=== PATIENT | male | born 1990 | race Caucasian/White ===

== ENCOUNTER 2022-09-03 18:35 | Emergency (ER) | payer OTHER, SELFPAY ==
--- NOTE | 2022-09-03 18:36 | ED.URI ---
HPI - URI/Sore Throat General Chief Complaint: Upper Respiratory Infection Stated Complaint: COUGH/RUNNY NOSE/CONGESTION Time Seen by Provider: 09/03/22 18:36 Source: patient Mode of arrival: ambulatory Limitations: no limitations History of Present Illness HPI Narrative: René is a 31-year-old male patient presenting to the clinic today with complaints of a cough, runny nose, and nasal congestion x3 days. He reports he has had the cough for approximately 1 week. Bringing up some clear yellowish phlegm. No known fever or chills. Denies any shortness of breath or chest pain. MD elicited complaint: cough, rhinorrhea and nasal congestion Related Data Allergies Allergy/AdvReac Type Severity Reaction Status Date / Time No Known Allergies Allergy Unverified 09/03/22 18:47 Review of Systems Review of Systems: Pertinent positives per HPI. Patient denies any fever, chills, rash, headache, visual changes, dizziness, shortness of breath, chest pain, palpitations, nausea, vomiting, diarrhea, constipation, abdominal pain, or any urinary issues. PMFSH Comments At the time of my signature, I reviewed and agree with the nursing past medical, surgical, social, and family history. There is no relevant family history pertinent to the patient complaint. Exam Narrative: General: Well-developed, obese, in no apparent distress Head: Normocephalic, atraumatic Eyes: Pupils equally round and reactive to light bilaterally, EOM intact, sclera and conjunctive clear, no discharge, lids normal Ears: TMs intact and clear, ear canals clear, no drainage, grossly hearing normal. Nose: Nares patent, clear nasal discharge, no inflammation, no sinus tenderness. Mouth: Oral pharynx without lesions or masses, good dentition, MMM. Postnasal drip Neck: Supple, trachea midline, no enlargement of anterior or posterior cervical nodes, no thyroid masses or goiter palpable. Cardio: Regular rate and rhythm, s1 and s2 normal, no murmur appreciated. Resp: Clear to auscultation bilaterally, no rhonchi, rales, wheezing or rubs Course Course Emergency Course: Portions of this record may have been created with voice recognition software. Level of Care: Express Care Visit Vital Signs Vital signs: Vital signs reviewed MDM - URI/Sore Throat MDM Narrative Medical decision making narrative: At the time of visit patient is resting on the exam table. I suspect patient has URI. Will send in prescription for prednisone and Tessalon Perles. Supportive measures were discussed with the patient he voiced understanding discharge instructions and agrees to treatment plan. Differential Diagnosis Differential diagnosis: Likely upper respiratory infection, otitis media, sinusitis, viral infection, bronchitis, influenza, pharyngitis and other (COVID) Discharge Plan Discharge Clinical Impression: Acute upper respiratory infection Patient Disposition: Home, Self-Care Condition: Stable Instructions: Antibiotic Form, Upper Respiratory Infection (ED) Additional Instructions: Take prescription medications only as prescribed-prednisone and Tessalon Perles Increase fluids and stay well hydrated Tylenol/motrin for pain/fever Flonase and OTC antihistamines as directed Vicks vapor rub to open sinuses Sinus rinses for congestion Cepacol spray, cough drops, throat lozenges, warm tea with honey/lemon, gargle salt water to soothe throat BRAT diet for diarrhea Clear liquids x 24 hours then advance as tolerated for nausea/vomiting Go to the ED if you develop a worsening in your condition- high fever not controlled by Tylenol or Motrin, dehydration, weakness, lethargy, shortness of breath, or chest pain. Follow up with your PCP in 3-5 days if symptoms persist. Prescriptions: New benzonatate 200 mg capsule 200 mg PO TID 7 Days Qty: 21 0RF prednisone 20 mg tablet 40 mg PO DAILY 5 Days Qty: 10 0RF Follow-up/Referrals: UNKNOWN,DOC
[2022-09-03 18:46] VITALS: BP 152/94; PULSE 108; RESP 16; TEMP 36.9; O2SAT 100
[2022-09-03 18:47] VITALS: BP 152/94; PULSE 108; RESP 16; TEMP 36.9; O2SAT 100
== END 2022-09-03 18:54 | disposition home or self-care (01) ==
PROVIDERS: Emergency Provider Nurse Practitioner Family
DX: J06.9 Acute upper respiratory infection, unspecified (principal)
CPT/HCPCS: 99203; G0463

== ENCOUNTER 2025-01-13 17:59 | Emergency (ER) | payer OTHER, SELFPAY ==
--- NOTE | ~2025-01-13 | XR_ITS ---
EXAMINATION: XR chest 2V 01/13/2025 18:36 INDICATION: Chest pain PROCEDURE: 2 view chest COMPARISON: No prior studies for comparison. FINDINGS: The lungs are clear. The cardiomediastinal silhouette is within normal limits. There are no pleural effusions. There is no pneumothorax suspected. IMPRESSION: 1: NO ACUTE CARDIOPULMONARY DISEASE. Reviewed, dictated and finalized at location O. AL WORK COORDINATOR
[2025-01-13 18:10] VITALS: BP 151/101; PULSE 117; RESP 16; TEMP 37.1; O2SAT 100
--- NOTE | 2025-01-13 18:11 | ED.ANXIETY ---
HPI - Anxiety General Chief Complaint: Anxiety <Ivet Vera PA-C - Last Filed: 01/15/25 14:35> Stated Complaint: anxiety <Ivet Vera PA-C - Last Filed: 01/15/25 14:35> Time Seen by Provider: 01/13/25 18:11 <Ivet Vera PA-C - Last Filed: 01/15/25 14:35> Focused HPI: This is a 34 year old male that presents to the ER for anxiety. Feels like he is having a panic attack. Does not take medication for this currently. Reports he had some chest pain that started this. GENERAL: Mildly anxious, well-nourished HEAD: Normocephalic, atraumatic. CHEST: Clear to auscultation. ?No respiratory distress. HEART: Regular rate and rhythm.? NEURO: ?Alert and oriented x3. Patient screened in triage and initial orders placed.? ?Additional care and disposition to be based upon?diagnostic testing and treatment. <Ivet Vera PA-C - Last Filed: 01/15/25 14:35> History of Present Illness HPI narrative: Agree with HPI <Justin Gregorio DO - Last Filed: 01/13/25 23:14> Related Data Allergies/Adverse Reactions: Allergies Allergy/AdvReac Type Severity Reaction Status Date / Time No Known Allergies Allergy Verified 01/13/25 18:16 <Ivet Vera PA-C - Last Filed: 01/15/25 14:35> Review of Systems Review of Systems: All systems reviewed & are unremarkable except as noted in HPI and below <Ivet Vera PA-C - Last Filed: 01/15/25 14:35> PMFSH Social History Social History: Social History Substance use type: does not use <RENATO Diehl Last Filed: 01/15/25 14:35> Course Vital Signs Vital signs: Vital Signs Temperature 98.7 F 01/13/25 18:10 Pulse Rate 117 H 01/13/25 18:10 Respiratory Rate 16 01/13/25 18:10 Blood Pressure 151/101 H 01/13/25 18:10 Pulse Oximetry 100 01/13/25 18:10 Oxygen Delivery Room Air 01/13/25 18:10 Temperature 98.7 F 01/13/25 18:10 Pulse Rate 94 01/13/25 19:53 Respiratory Rate 18 01/13/25 19:53 Blood Pressure 153/93 H 01/13/25 19:53 Pulse Oximetry 100 01/13/25 19:53 Oxygen Delivery Room Air 01/13/25 18:10 <Ivet Vera PA-C - Last Filed: 01/15/25 14:35> Vital Signs Temperature 98.7 F 01/13/25 18:10 Pulse Rate 117 H 01/13/25 18:10 Respiratory Rate 16 01/13/25 18:10 Blood Pressure 151/101 H 01/13/25 18:10 Pulse Oximetry 100 01/13/25 18:10 Oxygen Delivery Room Air 01/13/25 18:10 Temperature 98.7 F 01/13/25 18:10 Pulse Rate 94 01/13/25 19:53 Respiratory Rate 18 01/13/25 19:53 Blood Pressure 153/93 H 01/13/25 19:53 Pulse Oximetry 100 01/13/25 19:53 Oxygen Delivery Room Air 01/13/25 18:10 <Justin Gregorio DO - Last Filed: 01/13/25 23:14> MDM - Anxiety MDM Narrative Medical decision making narrative: 34-year-old male Presenting for chest pain and anxiety. On initial evaluation patient was in no acute distress afebrile, hemodynamic stable. Differentials include but are not limited to: ACS, PE, PNA, bronchitis, costochondritis, pleurisy, viral syndrome, GERD Notable exam findings: Heart and lungs clear. Abdomen soft nontender. Notable lab findings: Mild leukocytosis at 12.8. CMP without significant abnormalities. Troponin within normal limits. Notable imaging findings: Chest x-ray showed no acute process. EKG showed no concerning findings. Patient symptoms very consistent with anxiety. Low suspicion for ACS at this time. He was given a dose of Ativan due to his anxiety and did have improvement in his symptoms after this. Patient has a long history of anxiety that is untreated. He had tried an SSRI previously but did not continue to take it as he was concerned about the side effects. He has not spoken with his PCP for the right this. Has a history of GERD which does set off his anxiety occasionally. He already has omeprazole at home. He was further educated on Pepcid. The given his headache Karmen, he was given a prescription for hydroxyzine. Patient was deemed appropriate for discharge at this time. Patient was advised follow-up with their PCP in the next week for re-evaluation. Patient was agreeable to this plan. Given strict return precautions. <Justin Gregorio DO - Last Filed: 01/13/25 23:14> Medical Records Attestation: I reviewed the patient's medical records. <Justin Gregorio DO - Last Filed: 01/13/25 23:14> Lab Data Attestation: I reviewed the patient's lab results. <Justin Gregorio DO - Last Filed: 01/13/25 23:14> Result diagrams: 01/13/25 18:29 01/13/25 18:29 <Ivet Vrea PA-C - Last Filed: 01/15/25 14:35> Labs: Lab Results 01/13/25 Range/Units 18:29 WBC 12.8 H (4.5-10.0) K/mm3 RBC 5.93 (4.6-6.20) M/mm3 Hgb 17.2 (14.0-18.0) g/dL Hct 49.9 (42.0-52.0) % MCV 84.1 (80-100) fl MCH 29.0 (26-34) pg MCHC 34.5 (32-36) g/dl RDW 12.8 (11.5-14.5) % Plt Count 298 (150-375) k/mm3 MPV 9.3 (7.4-10.4) fl Immature Gran % (Auto) 0.4 (0-0.5) % Neut % (Auto) 70.8 (45.5-73.1) % Lymph % (Auto) 20.9 (18.3-44.2) % Wilkin % (Auto) 6.7 (2.6-8.5) % Eos % (Auto) 0.7 (0-4.4) % Baso % (Auto) 0.5 (0.2-1.2) % Lymph # (Auto) 2.66 (0.9-3.2) K/mm3 Wilkin # (Auto) 0.9 H (0.1-0.6) K/mm3 Eos # (Auto) 0.1 (0-0.3) K/mm3 Baso # (Auto) 0.1 (0.0-0.1) K/mm3 Abs Immat Gran (auto) 0.05 H (0.00-0.031) K/mm3 Absolute Neuts (auto) 9.0 H (1.3-6.7) K/mm3 Absolute Nucleated RBC 0.000 (0.0-0.012) K/mm3 Nucleated RBC % 0.0 (0.0-0.2) % PT 13.3 (11.1-14.7) Seconds INR 1.0 APTT 29.1 (22.3-36.8) Seconds Sodium 138 (137-145) mmol/L Potassium 4.2 (3.4-5.0) mmol/L Chloride 99 (98-107) mmol/L Carbon Dioxide 25 (22-30) mmol/L Anion Gap 14 H (4-12) mmol/L BUN 19 (9-20) mg/dL Creatinine 1.08 (0.7-1.3) mg/dL Estim Creat Clear Calc 120 ml/min Estimated GFR > 60 (59 - ) Glucose 97 (65-110) mg/dL Calcium 9.4 (8.4-10.2) mg/dL Total Bilirubin 1.0 (0.2-1.3) mg/dL AST 42 (17-59) U/L ALT 59 H (6-50) U/L Alkaline Phosphatase 81 (38-126) U/L Troponin I < 0.012 (0.000-0.034) ng/mL Total Protein 9.3 H (6.3-8.2) g/dL Albumin 5.3 H (3.5-5.1) g/dL Lipase 65 (23-300) U/L <Ivet Vera PA-C - Last Filed: 01/15/25 14:35> Lab Results 01/13/25 Range/Units 18:29 WBC 12.8 H (4.5-10.0) K/mm3 RBC 5.93 (4.6-6.20) M/mm3 Hgb 17.2 (14.0-18.0) g/dL Hct 49.9 (42.0-52.0) % MCV 84.1 (80-100) fl MCH 29.0 (26-34) pg MCHC 34.5 (32-36) g/dl RDW 12.8 (11.5-14.5) % Plt Count 298 (150-375) k/mm3 MPV 9.3 (7.4-10.4) fl Immature Gran % (Auto) 0.4 (0-0.5) % Neut % (Auto) 70.8 (45.5-73.1) % Lymph % (Auto) 20.9 (18.3-44.2) % Wilkin % (Auto) 6.7 (2.6-8.5) % Eos % (Auto) 0.7 (0-4.4) % Baso % (Auto) 0.5 (0.2-1.2) % Lymph # (Auto) 2.66 (0.9-3.2) K/mm3 Wilkin # (Auto) 0.9 H (0.1-0.6) K/mm3 Eos # (Auto) 0.1 (0-0.3) K/mm3 Baso # (Auto) 0.1 (0.0-0.1) K/mm3 Abs Immat Gran (auto) 0.05 H (0.00-0.031) K/mm3 Absolute Neuts (auto) 9.0 H (1.3-6.7) K/mm3 Absolute Nucleated RBC 0.000 (0.0-0.012) K/mm3 Nucleated RBC % 0.0 (0.0-0.2) % PT 13.3 (11.1-14.7) Seconds INR 1.0 APTT 29.1 (22.3-36.8) Seconds Sodium 138 (137-145) mmol/L Potassium 4.2 (3.4-5.0) mmol/L Chloride 99 (98-107) mmol/L Carbon Dioxide 25 (22-30) mmol/L Anion Gap 14 H (4-12) mmol/L BUN 19 (9-20) mg/dL Creatinine 1.08 (0.7-1.3) mg/dL Estim Creat Clear Calc 120 ml/min Estimated GFR > 60 (59 - ) Glucose 97 (65-110) mg/dL Calcium 9.4 (8.4-10.2) mg/dL Total Bilirubin 1.0 (0.2-1.3) mg/dL AST 42 (17-59) U/L ALT 59 H (6-50) U/L Alkaline Phosphatase 81 (38-126) U/L Troponin I < 0.012 (0.000-0.034) ng/mL Total Protein 9.3 H (6.3-8.2) g/dL Albumin 5.3 H (3.5-5.1) g/dL Lipase 65 (23-300) U/L <Justin Gregorio - Last Filed: 01/13/25 23:14> Imaging Data Attestation: I personally reviewed and interpreted this imaging study as follows: <Justin Gregorio - Last Filed: 01/13/25 23:14> My impression: Chest x-ray: Normal cardiac silhouette, no consolidations, no pleural effusions, no pulmonary vascular congestion <Justin Gregorio Last Filed: 01/13/25 23:14> Radiologist's impression: Impressions Chest X-Ray 01/13/25 18:37 IMPRESSION: 1: NO ACUTE CARDIOPULMONARY DISEASE. <Justin Gregorio - Last Filed: 01/13/25 23:14> ECG Data EKG #1: Attestation: I personally reviewed and interpreted this ECG as follows: <Justin Gregorio Last Filed: 01/13/25 23:14> ECG completion date: 01/13/25 <Justin Gregorio Last Filed: 01/13/25 23:14> ECG completion time: 18:17 <Justin Gregorio Last Filed: 01/13/25 23:14> Interpretation: Normal sinus rhythm with sinus arrhythmia rate of 84, normal axis, incomplete right bundle-branch block no acute ST or T-wave changes <Justin Gregorio DO - Last Filed: 01/13/25 23:14> Discharge Plan Discharge Clinical Impression: Acute anxiety <RENATO Diehl Last Filed: 01/15/25 14:35> Patient Disposition: Home <RENATO Diehl Last Filed: 01/15/25 14:35> Condition: Stable <Ivet Vera PA-C - Last Filed: 01/15/25 14:35> Instructions: Antibiotic Form, Anxiety (ED) <RENATO Diehl Last Filed: 01/15/25 14:35> Additional Instructions: Take hydroxyzine as prescribed. Follow up with your pcp regarding other potential anxiety medications. Return to the ED for new or worsening symptoms. <RENATO Diehl Last Filed: 01/15/25 14:35> Patient Language: Tristanian <RENATO Diehl Last Filed: 01/15/25 14:35> Prescriptions: New hydroxyzine HCl 25 mg tablet 25 mg PO TID PRN (Reason: anxiety) Qty: 30 0RF No Action benzonatate 200 mg capsule 200 mg PO TID 7 Days Qty: 21 0RF prednisone 20 mg tablet 40 mg PO DAILY 5 Days Qty: 10 0RF <Ivet Vera PA-C - Last Filed: 01/15/25 14:35> Follow-up/Referrals: Clement Barragan MD [Physician, Family Practice] PHYSICIAN NOT ON STAFF,NONSTAFF [Primary Care Provider] <Ivet Vera PA-C - Last Filed: 01/15/25 14:35>
--- NOTE | 2025-01-13 18:13 | ECG_ITS ---
Test Date: 2025-01-13 18:17:40 Measurements Intervals [place] Rate: 84 P: 7 AK: 130 QRS: 17 QRSD: 101 T: 33 QT: 352 QTc: 418 Interpretive Statements SINUS RHYTHM WITH SINUS ARRHYTHMIA INCOMPLETE RIGHT BUNDLE BRANCH BLOCK [90+ ms QRS DURATION, TERMINAL R IN V1/V2, 40+ ms S IN I/aVL/V4/V5/V6] No previous ECG available for comparison Electronically Signed On 01-13-2025 21:26:41 APPAREL FASHION DESIGNER by Stephanie Gómez M.D.
[2025-01-13 18:35] LABS: Hematocrit 49.9 % (42.0-52.0); Hemoglobin 17.2 g/dL (14.0-18.0); Immature Granulocyte Percent A 0.4 % (0-0.5); Lymphocytes Absolute Auto 2.66 K/mm3 (0.9-3.2); Mean Corpuscular HGB Conc 34.5 g/dl (32-36); Mean Corpuscular Hemoglobin 29.0 pg (26-34); Mean Corpuscular Volume 84.1 fl (80-100); Nucleated Red Blood Cells Absolute Auto 0.000 K/mm3 (0.0-0.012); Nucleated Red Blood Cells Perc 0.0 % (0.0-0.2); Platelet Count Result 298 k/mm3 (150-375); Red Blood Count 5.93 M/mm3 (4.6-6.20); White Blood Count 12.8 K/mm3 (4.5-10.0)
[2025-01-13 18:49] LABS: Alanine Aminotransferase 59 U/L (6-50); Albumin Level 5.3 g/dL (3.5-5.1); Alkaline Phosphatase 81 U/L (38-126); Anion Gap 14 mmol/L (4-12); Aspartate Amino Transferase 42 U/L (17-59); Bilirubin,Total 1.0 mg/dL (0.2-1.3); Blood Urea Nitrogen 19 mg/dL (9-20); Calcium 9.4 mg/dL (8.4-10.2); Carbon Dioxide 25 mmol/L (22-30); Chloride 99 mmol/L (98-107); Estimated CRCL calculation 120 ml/min; Estimated Glomerular Filt Rate > 60; Glucose 97 mg/dL (65-110); Lipase 65 U/L (23-300); Potassium 4.2 mmol/L (3.4-5.0); Sodium 138 mmol/L (137-145); Total Protein 9.3 g/dL (6.3-8.2)
[2025-01-13 18:50] LABS: INR 1.0; Partial Thromboplastin Time 29.1 Seconds (22.3-36.8); Prothrombin Time 13.3 Seconds (11.1-14.7)
[2025-01-13 19:00] LABS: Troponin I < 0.012 ng/mL (0.000-0.034)
[2025-01-13] MEDS: LORazepam (*CRX) 0.5 MG TABLET PO (19:09)
[2025-01-13 19:53] VITALS: BP 153/93; PULSE 94; RESP 18; O2SAT 100
--- OUTSIDE RECORDS SUMMARY | 2025-01-13 21:18 | XMS_ITS | Clinical Summary ---
Author Organization [facility] Address [facility] [place] [address] Care Team Providers Care Teacher Citizenship Name Role Phone Sparkle Turner NP Primary Care Provider [phone] Allergies No known active allergies Medications vitamin D3 (CHOLECALCIFEROL ) 1.25 mg capsuleIndicatio ns:Vitamin D deficiency Take 1 capsule (50,000 Units total) by mouth once a week. 12 capsule 3 02/13/2024 Active escitalopram (LEXAPRO) 10 MG tabletIndication s:Generalized anxiety disorder Take 1 tablet (10 mg total) by mouth daily. 30 tablet 08/03/2024 Active omeprazole (PRILOSEC) 40 MG capsuleIndicatio ns:Gastroesophag eal reflux disease with esophagitis without hemorrhage Take 1 capsule (40 mg total) by mouth daily. 90 capsule 3 08/03/2024 Active famotidine (PEPCID) 20 MG tabletIndication s:Gastroesophage al reflux disease with esophagitis without hemorrhage Take 1 tablet (20 mg total) by mouth 2 (two) times daily with meals. 60 tablet 5 08/03/2024 Active Active Problems Problem Noted Date Diagnosed Date Generalized anxiety disorder 02/09/2024 Morbid obesity with BMI of 40.0-44.9, adult 04/2023 COVID 06/08/2020 Medication management 02/18/2020 BMI 39.0-39.9,adult 10/15/2019 GERD (gastroesophageal reflux disease) 9 Dyslipidemia 07/14/2018 Assessment & Plan (07/14/2018 5:01 PM CDT): Advised patient to lose weight and exercise. Stay on a low- cholesterol/carbohydrate diet. We will continue to monitor. Hepatic steatosis 07/14/2018 Assessment & Plan (07/14/2018 5:17 PM CDT): We will continue to monitor. Will repeat ultrasound as recommended for comparison. Advised to stay on a low-cholesterol/carbohydrate diet. Exercise and lose weight. Likewise advised to completely stop drinking alcohol. Avoid Tylenol products. Migraine 07/14/2018 Assessment & Plan (07/14/2018 5:19 PM CDT): Headache is better. He takes Motrin as needed. Palpitations Resolved Problems Problem Noted Date Diagnosed Date Resolved Date Right upper quadrant abdominal pain 08/21/2018 02/23/2019 Acne 07/21/2012 07/17/2021 Immunizations Immunization Administration Dates Next Due Fluzone Adult - >Age 3 (Pref illed Syringe) 12/20/2019(Deferred: Patient Refused) Family History Medical History Relation Comments Stroke Maternal Grandfather Hypertension Mother Relation Status Comments Father Alive Maternal Grandfather Maternal Grandmother Alive Mother Alive Social History Tobacco Use Types Packs/Day Years Used Date Smoking Tobacco: Never Smokeless Tobacco: Never Comments:no hx tobacco Alcohol Use Standard Drinks/Week Comments Not Currently 0 (1 standard drink = 0.6 oz pur e alcohol) rare AUDIT-C Answer Date Recorded Q1: How often do you have a drink containing alc ohol? Monthly or less 02/18/2020 Q2: How many drinks containi ng alcohol do you have on a typical day when you are drinking? 1 or 2 02/18/2020 Frequency of Binge Drinking Not on file 02/07 PHQ-2 Answer Date Recorded Patient Health Questionnaire-2 Score 4 08/03/2024 Sex and Gender Information Value Date Recorded Sex Assigned at Male 03/15/2024 9:01 AM SALES FACILITATOR Legal Sex Male 7:05 PM CDT Gender Identity Male 03/15/2024 9:01 AM SALES FACILITATOR Sexual Orientation Not on file Last Filed Vital Signs Vital Sign Reading Time Taken Comments Blood Pressure 122/82 08/03/2024 10:30 AM CDT Pulse 92 08/03/2024 10:25 AM CDT Temperature 36.7 C (98.1 F) 08/03/2024 10:25 AM CDT Respiratory Rate 20 08/03/2024 10:2 5 AM CDT Oxygen Saturation 99% 08/03/2024 10: 25 AM CDT Inhaled Oxygen Concentration - - Weight 130.5 kg (287 lb 9.6 oz) 025 10:25 AM CDT Height 177.8 cm (5' 10) 08/03/2024 10: 25 AM CDT Body Mass Index 41.27 08/03/2024 10:25 AM CDT Plan of Treatment Health Maintenance Due Date Last Done Comments Annual Physical 11/07/1995 Hepatitis A Vaccines (1 of 2 - Risk 2-dose series) 11/07/2011 HPV Vaccines (1 - 3-dose SCD M series) 11/07/2019 COVID-19 Vaccine (1 - 2024-2 6 season) 2024 Influenza Adult (#1) 2024 DTaP, Tdap and Td Vaccines ( 1 - Tdap) 02/08/2025 Postponed from 11/06 (Patient Refused) Hepatitis B Vaccines (1 of 3 - 19+ 3-dose series) 02/08/2025 Postponed from 10/10 (Patient/Guardian Refusal) Hepatitis C Completed 10/02/2017, 10/02/2017 PHQ-2 (Physician [place]) Completed 08/03/2024 Meningococcal B Vaccine Aged Out No l onger eligible based on patient's age to complete this topic Meningococcal Vaccine Aged Out No simone brenden eligible based on patient's age to complete this topic Pneumococcal Vaccine: Pediatrics (0 to 5 Years) and At-Risk Patients (6 to 49 Years) Aged Out No longer eligible b ased on patient's age to complete this topic RSV Immunizations Under 20 Months Aged Out No longer eligible b ased on patient's age to complete this topic Procedures Procedure Name Priority Date/Time Associated Diagnosis Comments HEPATITIS C ANTIBODY Routine 10/02/2017 9:31 AM CDT from Last 3 Months or Most Recently Relevant to Health Maintenance Results * HEPATITIS C ANTIBODY (10/02/2017 9:31 AM CDT) HEPATITIS C AB NON-REACTI VE NR [facility] TO EPIC CONVERSION 10/02/2017 9:31 AM CDT 10/02/2017 9:31 AM CDT Narrative [facility] TO EP[facility] CONVERSION - 10/02/2017 9:31 AM CDT [Task Replied to Domitila] TELL PT ALL LABS/HEPATITIS ARE QALL FINE. REPEAT LFT IN 6 WEEKS THEN SEE ME. TELL HIM TO AVOID ALCOHOL. ALSO W/ TYLENOL. us Jose Lux MD LABORATORY Final Result [facility] TO EP[facility] CONVERSION from Last 3 Months or Most Recently Relevant to Health Maintenance Insurance [facility] Care Teams Teacher Citizenship Relationship Specialty [place] [address] [facility] [address] [place] [address] PCP - General Nurse Practitioner Family 06/25/21
--- OUTSIDE RECORDS SUMMARY | 2025-01-13 21:18 | XMS_ITS | Encounter Summary ---
Author Organization [facility] Address [facility] [place] [address] Care Team Providers Care Disaster Or Damage Control Specialist Name Role Phone Jose Lux MD Primary Care Provider [phone] Denilson Enrique MD Primary Care Provider [phone] Sparkle Turner NP Primary Care Provider [phone] Encounter Details Date Type Department Care Team (Late st Contact Info) Description 01/05/2018 Abstract [facility] Jose Lux MD [address] [place] [address] Social History Tobacco Use Types Packs/Day Years Used Date Smoking Tobacco: Never Assessed Sex and Gender Information Value Date Recorded Sex Assigned at Male 03/15/2024 9:01 AM STUDENT AFFAIRS VICE PRESIDENT Legal Sex Male 7:05 PM CDT Gender Identity Male 03/15/2024 9:01 AM STUDENT AFFAIRS VICE PRESIDENT Sexual Orientation Not on file documented as of this encounter Miscellaneous Notes * Letter - Jose Lux MD - 01/05/2018 12:00 AM CDT 01-05-2018 , [address] [place] [address] : 1990 RadiologyMRI Abdomen Wo W/Wo Fasting [] Non-Fasting [] Normal [] Stat [] ENT AFFAIRS VICE PRESIDENT * Letter - Jose Lux MD - 01/05/2018 12:00 AM CDT 01-05-2018 , [facility] [address] [place] [address] : 1990 Radiology MRI Abdomen W / [place] [id number] DX; hepatic mass K76.89 called [facility] [phone], author [id number] valid till 03-09-18 Fasting [] Non-Fasting [] Normal [] Stat [] ENT AFFAIRS VICE PRESIDENT documented in this encounter Plan of Treatment Not on file documented as of this encounter Visit Diagnoses Not on filedocumented in this encounter Care Teams Disaster Or Damage Control Specialist Relationship Specialty Start Date End Date Jose Lux MD PCP - General FAMILY PRACTICE 07/07/18 02/14/19 Denilson Enrique MD PCP - General INTERNAL MEDICINE 02/15/19 06/24/21 [place] [address] [address] PCP - General Nurse Practitioner Family 06/25/21 documented as of this encounter
== END 2025-01-13 19:54 | disposition home or self-care (01) ==
PROVIDERS: Physician Assistant; Emergency Provider Student in an Organized Health Care Education/Training Program
DX: F41.9 Anxiety disorder, unspecified (principal); K21.9 Gastro-esophageal reflux disease without esophagitis; I45.10 Unspecified right bundle-branch block
CPT/HCPCS: 36415; 71046; 80053; 83690; 84484; 85025; 85610; 85730; 93005; 99284; A9270